=== PATIENT | male | born 1985 | race Caucasian/White ===

== ENCOUNTER 2020-07-25 17:42 | Emergency (ER) | payer BC ==
[~2020-07-25] VITALS: Ht 180.3 cm; Wt 136.5 kg
[2020-07-25 17:52] VITALS: Ht 180.3 cm; Wt 136.5 kg
[2020-07-25 18:48] LABS: BASOPHIL % 0.3 % (0-2); PLATELET COUNT 237 x10^3mcL (130-400); RED CELL DISTRIBUTION WIDTH 13.8 % (11.5-14.5)
[2020-07-25 18:57] LABS: CALCIUM 9.4 mg/dL (8.5-10.1); CARBON DIOXIDE 26.4 mmol/L (21-32); CHLORIDE SERUM 102 mmol/L (98-107); CREATININE SERUM 1.3 mg/dL (0.7-1.3); GFR1 > 60 mL/min; GLUCOSE SERUM 133 mg/dL (74-106); POTASSIUM SERUM 3.8 mmol/L (3.5-5.1); SODIUM SERUM 139 mmol/L (136-145)
[2020-07-25 19:00] LABS: ALBUMIN 4.2 g/dL (3.4-5.0); ALKALINE PHOSPHATASE 77 U/L (46-116); ALT/SGPT 29 U/L (16-63); AST/SGOT 27 U/L (15-37); CHOLESTEROL 173 mg/dL (<200); CHOLESTEROL/HDL RATIO 3.8; HDL CHOLESTEROL 46 mg/dL (40-60); LIPASE 73 IU/L (73-393); TRIGLYCERIDES 108 mg/dL (<150)
[2020-07-25 19:03] LABS: TOTAL PROTEIN, SERUM 8.3 g/dL (6.4-8.2)
[2020-07-25 19:34] LABS: UA SPECIFIC GRAVITY 1.025 (1.005-1.035); microscopic required? YES; urine erythrocyte 2+ (NEGATIVE)
[2020-07-25 22:49] VITALS: BP 172/105
== END 2020-07-25 22:49 | disposition home or self-care (01) ==
LOC: ED 17:42
PROVIDERS: Specialist
DX: N20.0 Calculus of kidney (principal); Z98.890 Other specified postprocedural states
CPT/HCPCS: 83880; J1885; J2405; J3010; J7030